=== PATIENT | female | born 1980 | race Two or more races ===

== ENCOUNTER → 2021-04-26 | Outpatient (CLI) | payer OTHER ==
--- NOTE | 2021-04-26 10:32 | KCIC ---
MR LUMBAR SPINE WO [id number] History: Reason: LOW BACK PAIN / Spl. Instructions: / History: Lower back pain for yrs. New BLE numb ness in recent months. Technique: Multiplanar, multi sequential MR imaging was performed of the lumbar spine. Comparison: None Findings: Normal vertebral body height and alignment. No fracture. Conus terminates at the normal location. No evidence of nerve root clumping. L1-L2: No canal or neuroforaminal narrowing. L2-L3: No canal or neuroforaminal narrowing. L3-L4: No canal or neuroforaminal narrowing. L4-L5: Small disc bulge. Mild facet arthropathy. No canal narrowing. Minimal subarticular recess ngoc rowing. No neuroforaminal narrowing. L5-S1: No canal or neuroforaminal narrowing. Mild facet arthropathy. Impression: 1. Mild lumbar spondylosis. Electronically signed by: Baldo Monte DO (04/26/2021 10:29 AM) [id number]
== END ==
LOC: KCIC MRI 09:06
PROVIDERS: ATTEND Physician Assistant
DX: M47.26 Other spondylosis with radiculopathy, lumbar region (principal); M51.26 Other intervertebral disc displacement, lumbar region; M48.8X7 Other specified spondylopathies, lumbosacral region
CPT/HCPCS: 72148

== ENCOUNTER → 2021-05-27 | Outpatient (CLI) | payer OTHER ==
--- NOTE | 2021-05-28 09:09 | KCIC ---
EXAM: MRI Right foot, attention to midfoot DATE: 05/27/2021 9:35 AM CLINICAL HISTORY: Reason: RIGHT FOOT PAIN / Spl. Instructions: / History: Right midfoot pain, latera l side. Sx since turning wrong in bed 01/26. COMPARISON: 04/12/2021, 03/15/2021, 02/11/2021, 02/04/2021 TECHNIQUE: Multiplanar, multisequence MR imaging of the right foot was performed without IV contrast. FINDINGS: Nondisplaced fracture is seen to the base of the fifth metatarsal with mild associated edema, subacut e to chronic. Moderate edema is also seen within the cuboid, contusion, without discrete fracture zoila ne. Mild edema centered at the second, third and fourth TMT joints, degenerative. Degenerative changes centered at the first MTP joint. Grossly normal muscle signal and bulk without f atty atrophy. Visualized flexor and extensor tendons are grossly intact. No tenosynovitis. IMPRESSION: 1. Healing fifth metatarsal base fracture, nondisplaced, likely subacute. 2. 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 Electronically signed by: Dave Olivares MD (05/28/2021 9:07 AM) [id number]
== END ==
LOC: KCIC MRI 09:23
PROVIDERS: ATTEND Physician Assistant
DX: S92.351G Displaced fracture of fifth metatarsal bone, right foot, subsequent encounter for fracture with delayed healing (principal); X58.XXXD Exposure to other specified factors, subsequent encounter
CPT/HCPCS: 73718